=== PATIENT | male | born 1955 | race Caucasian/White ===

== ENCOUNTER 2020-06-04 19:01 | Emergency (ER) | payer BC ==
[2020-06-04 19:30] VITALS: BP 102/56; PULSE 75; RESP 18; TEMP 98.5
[2020-06-04] MEDS ORDERED: BACITRACIN OINT 1 EACH PACKET TOPICAL ONE (22:05)
[2020-06-04] MEDS ORDERED: DIPH,PERTUS(ACELL)TETVAC-LF 0.5 ML VIAL IM ONE (22:05)
[2020-06-04] MEDS ORDERED: LIDOCAINE 1% INJ 10MG/ML (20 ML MDV) SQ ONE (22:05)
--- NOTE | 2020-06-04 22:33 | ED ---
Wound/Laceration HPI - General Chief Complaint: Wound/Laceration Stated Complaint: Finger Lac Time Seen by Provider: 06/04/20 20:40 Source: patient Mode of arrival: ambulatory - History of Present Illness Initial Comments: 64-year-old male patient presents to the emergency department today for evaluation of laceration to the left index finger. Patient states around 4 PM he was out pulling weeds in the garden. States he was attempting to pull a thin vine from the ground which caused the laceration to his finger. Patient was able to get the bleeding under control. Denies any significant pain. Denies any difficulty with range of motion. Denies numbness or tingling to the finger. Patient is unsure when his last tetanus vaccine was given. Denies any other injuries. Patient denies any headache, neck pain, back pain, chest pain, shortness of breath, dizziness, weakness, abdominal pain, nausea, vomiting, or difficulties with bowel movements or urination. - Related Data Home Medications Medication Instructions Recorded Confirmed Aspirin 81 mg PO DAILY 04/05/15 09/15/16 Multivit-Min/FA/Lycopene/Lut 1 each PO DAILY 04/05/15 09/15/16 [Centrum Silver Tablet] [place]-3 Fatty Acids/Fish Oil [Fish 1 each PO BID 04/05/15 09/15/16 Oil 1,000 mg Softgel] Allergies Allergy/AdvReac Type Severity Reaction Status Date / Time Penicillins Allergy Rash/Hives Verified 06/04/20 19:29 Review of Systems ROS Statement: Those systems with pertinent positive or pertinent negative responses have been documented in the HPI. ROS Other: All systems not noted in ROS Statement are negative. Past Medical History Past Medical History: Hyperlipidemia History of Any Multi-Drug Resistant Organisms: None Reported Past Surgical History: Orthopedic Surgery Additional Past Surgical History / Comment(s): Nasal surgery; right shoulder surgery; knee surgery Past Psychological History: No Psychological Hx Reported Smoking Status: Never smoker Past Alcohol Use History: Occasional Past Drug Use History: None Reported General Exam General appearance: alert, in no apparent distress, other (This is a well- developed, well-nourished adult male patient in no acute distress. Vital signs upon presentation are temperature 98.5F, pulse 75, respirations 18, blood pressure 102/56, pulse ox 98% on room air.) Respiratory exam: Present: normal lung sounds bilaterally. Absent: respiratory distress, wheezes, rales, rhonchi, stridor Cardiovascular Exam: Present: regular rate, normal rhythm, normal heart sounds. Absent: systolic murmur, diastolic murmur, rubs, gallop, clicks Extremities exam: Present: full ROM, normal capillary refill, other (There is a 3 cm laceration noted to the palmar surface over the middle phalanx on the left index finger. There is no active bleeding. Skin is otherwise pink, warm, dry. Cap refills less than 3 seconds. Radial pulses 2+ and equal bilaterally.). Absent: normal inspection, tenderness, pedal edema, joint swelling, calf tenderness Neurological exam: Present: alert, oriented X3, CN II-XII intact Psychiatric exam: Present: normal affect, normal mood Skin exam: Present: warm, dry, intact, normal color. Absent: rash Course Vital Signs 06/04/20 19:26 Temperature 98.5 F Pulse Rate 75 Respiratory 18 Rate Blood Pressure 102/56 O2 Sat by Pulse 98 Oximetry Procedures - Laceration Laceration #1 Consent Obtained: verbal consent Indication: laceration Site: hand (Left index finger) Size (cm): 3 Description: linear Depth: simple, single layer Anesthetic Used: lidocaine 1% Anesthesia Technique: local infiltration Amount (mls): 4 Pre-repair: irrigated extensively Type of Sutures: nylon Size of Sutures: 5-0 Number of Sutures: 4 Technique: simple, interrupted Patient Tolerated Procedure: well, no complications Medical Decision Making - Medical Decision Making 64-year-old male patient presents to the emergency department today for evaluation of laceration to the left index finger. Physical examination did reveal a 3 cm laceration. Area was cleansed and irrigated. There is no bony tenderness. No difficulty with range of motion. Neurovascular status was intact. Did repair the wound as documented. He'll be discharged to follow-up with his primary care physician for recheck in 1-2 days. We did discuss wound care, signs of infection, and suture removal. Return parameters were discussed in detail. He verbalizes understanding and agrees with this plan. Disposition Clinical Impression: Laceration of left index finger Disposition: HOME SELF-CARE Condition: Good Instructions (If sedation given, give patient instructions): Care For Your Stitches (ED), Laceration (ED) Additional Instructions: Keep wound clean and dry. Cleanse twice daily with warm water and antibacterial soap. Monitor for signs or symptoms of infection including but not limited to redness, swelling, drainage of pus, fever, or chills. Return in 7 days to have the stitches removed. Follow-up with your primary care physician for recheck in 1-2 days. Return to the emergency department immediately for any new, worsening, or concerning symptoms. Is patient prescribed a controlled substance at d/c from ED?: No Referrals: Fermin Su DO [Primary Care Provider] - 1-2 days Time of Disposition: 22:33
== END 2020-06-04 22:51 | disposition home or self-care (01) ==
LOC: EC 19:01
DX: S61.211A Laceration without foreign body of left index finger without damage to nail, initial encounter (principal); Z79.82 Long term (current) use of aspirin; Z88.0 Allergy status to penicillin; Z23 Encounter for immunization; Y93.H2 Activity, gardening and landscaping
CPT/HCPCS: 90715; 99282; 12002; 90471; J2001

== ENCOUNTER → 2021-09-12 | Outpatient (CLI) | payer BC ==
[~2021-09-12] MED LIST: BAMLANIVIMAB (EUA) 700 MG, ETESEVIMAB (EUA) 1,400 MG in SODIUM CHLORIDE 0.9% 50 ML IVPB NR; SODIUM CHLORIDE 0.9% 50 ML IVPB NR; SODIUM CHLORIDE 0.9% 500 ML 500 ML in EMPTY BAG 1 BAG IV PRN
[2021-09-12 14:50] VITALS: TEMP 97.6
[2021-09-12 15:54] VITALS: BP 142/84; PULSE 97; RESP 16
== END ==
LOC: PROCWHC3 13:34
PROVIDERS: ATTEND Physician Assistant Medical
DX: U07.1 COVID-19 (principal); E66.9 Obesity, unspecified; Z68.28 Body mass index [BMI] 28.0-28.9, adult; Z88.0 Allergy status to penicillin
CPT/HCPCS: 96360; J3490; M0245